=== PATIENT | female | born 1995 | race Two or more races ===

== ENCOUNTER 2019-10-11 10:55 | Inpatient (IN) | payer OTHER ==
[~2019-10-11] VITALS: Wt 78.5 kg
[2019-10-19] MEDS ORDERED: PRENATAL CAPLE1 EAC1 PO (22:04)
== END 2019-10-21 15:52 | disposition home or self-care (01) | DRG 807 ==
LOC: LDR 10-19 21:25 → OB/GYN 10-19 21:25
PROVIDERS: ADMIT Specialist
PROC: 10E0XZZ Delivery of Products of Conception, External Approach (ICD-10-PCS; principal; 2019-10-19)
PROC: 0HQ9XZZ Repair Perineum Skin, External Approach (ICD-10-PCS; 2019-10-19)
PROC: 4A1HXFZ Monitoring of Products of Conception, Cardiac Rhythm, External Approach (ICD-10-PCS; 2019-10-19)
PROC: 3E033VJ Introduction of Other Hormone into Peripheral Vein, Percutaneous Approach (ICD-10-PCS; 2019-10-19)
DX: O70.0 First degree perineal laceration during delivery (principal); Z37.0 Single live birth; Z3A.38 38 weeks gestation of pregnancy